=== PATIENT | female | born 1950 | race Caucasian/White ===

== ENCOUNTER 2019-06-25 13:54 | Emergency (ER) | payer OTHER, MEDICARE ==
[2019-06-25] MEDS ORDERED: ONDANSETRON 4 MG/2 ML VIAL ONE (15:22)
[2019-06-25] MEDS ORDERED: MORPHINE 2 MG/ML SYR ONE (15:22)
[2019-06-25] MEDS ORDERED: NA CHLORIDE 0.9% 500 ML ONE (15:22)
[2019-06-25 15:34] LABS: Absolute Lymphocytes (CBC) 1.7 K/uL (0.7-4.9); Basophils % 0.6 % (0-1.3); Lymphocytes % 20.7 % (15.3-44.8); MPV 7.1 fL (7.6-11.3); RBC Red Blood Cell Count 4.47 M/uL (3.86-4.86)
[2019-06-25 15:48] LABS: ALT/SGPT 19 U/L (12-78); AST/SGOT 15 U/L (15-37); Albumin 3.9 g/dL (3.4-5.0); Alkaline Phosphatase 92 U/L (45-117); BUN Blood Urea Nitrogen 13 mg/dL (7-18); Bicarbonate 25 mmol/L (21-32); Bilirubin Direct 0.2 mg/dL (0-0.2); Bilirubin Total 0.6 mg/dL (0.2-1.0); Glucose Level 78 mg/dL (74-106); Lipase 55 U/L (73-393); Magnesium 1.9 mg/dL (1.8-2.4); Potassium 3.7 mmol/L (3.5-5.1); Sodium Level 140 mmol/L (136-145); Troponin I < 0.02 ng/mL (0.0-0.045)
--- NOTE | 2019-06-25 16:18 | RAD REPORT ---
EXAM DESCRIPTION: CT - Head Brain Wo Cont - 06/25/2019 4:09 pm CLINICAL HISTORY: Dizziness COMPARISON: None TECHNIQUE: Computed axial tomography of the head was obtained. IV contrast was not requested. All CT scans are performed using dose optimization technique as appropriate and may include automated exposure control or mA/KV adjustment according to patient size. FINDINGS: An intracranial bleed is not seen . The ventricles are normal in caliber. No extra-axial fluid collection is noted. Mild to moderate low-density areas within periventricular, deep and subcortical white matter likely r epresent ischemic changes secondary to small vessel disease. Fluid within the sinuses/ mastoids is not seen. IMPRESSION: No acute intracranial abnormality is seen. If patient's symptoms persist MRI of the bra in would be recommended.
--- NOTE | 2019-06-25 16:28 | RAD REPORT ---
EXAM DESCRIPTION: CT - Abdomen Pelvis W Contrast - 06/25/2019 4:13 pm CLINICAL HISTORY: Abdominal pain COMPARISON: none. TECHNIQUE: Computed axial tomography of the abdomen pelvis was obtained. 100 cc Isovue-300 was admin istered intravenously. Oral contrast was not requested which limits evaluation of bowel and appendix. All CT scans are performed using dose optimization technique as appropriate and may include automated exposure control or mA/KV adjustment according to patient size. FINDINGS: Very small hepatic cyst 1Spleen, pancreas, adrenal and kidneys appear unremarkable. There is no evidence of diverticulitis. The appendix is not visualized Fluid is present within nondilated bowel IMPRESSION: Fluid is present within nondilated bowel which may indicate an enteritis .
[2019-06-25 16:33] LABS: Calcium Oxalate Crystals- Ur MANY (NONE SEEN); Urine Amorphous Sediment 3+ /HPF (NONE SEEN); Urine Bacteria <20 /HPF (<20); Urine Culture Reflex Order NOT NEEDED; Urine Mucus 2+ /HPF (NONE SEEN); Urine RBC <5 /HPF (NONE SEEN)
[2019-06-25 17:03] LABS: Urine Blood NEGATIVE (NEG); Urine Glucose NEGATIVE (NEG); Urine Protein TRACE (NEG); Urine Specific Gravity >1.030 (1.005-1.030); Urine pH 5.5 (5.0-7.0)
[2019-06-25] MEDS ORDERED: DICYCLOMINE HCL 10 MG CAP ONE (17:19)
--- NOTE | 2019-06-25 17:24 | ER ---
Nurse's Notes [facility] Name: Alejandra Zapata Age: 69 yrs Sex: Female : 1950 Arrival Date: 06/25/2019 Time: 13:57 Bed 5 Private MD: Diagnosis: Lower abdominal pain, unspecified;Diarrhea, unspecified Presentation: 06/25 14:00 Presenting complaint: Patient states: i have been sick for like 2 and half months, i tw2 had e coli, i go to dr. dolan, then right at the end of it i thought i had a UTI, i had meniscus surgery first, then got the infection, i was diagnosed with diverticulitis. Transition of care: patient was not received from another setting of care. Risk Assessment: Do you want to hurt yourself or someone else? Patient reports no desire to harm self or others. Initial Sepsis Screen: Does the patient meet any 2 criteria? No. Patient's initial sepsis screen is negative. Does the patient have a suspected source of infection? No. Patient's initial sepsis screen is negative. Care prior to arrival: None. 14:00 Method Of Arrival: Ambulatory tw2 14:00 Acuity: AYSE 3 tw2 14:01 Presenting complaint: Patient states: my stomach hurts and my right side of my stomach tw2 hurts and it get dizzy, i have nausea, and i have diarrhea. Triage Assessment: 14:03 General: Appears in no apparent distress. well groomed, Behavior is calm, cooperative, tw2 appropriate for age. Pain: Complains of pain in abdomen. GI: Reports lower abdominal pain, upper abdominal pain, diarrhea, nausea. 14:03 Neuro: Reports dizziness. tw2 Historical: - Allergies: 14:09 Bactrim; tw2 14:09 PENICILLINS; tw2 14:09 Latex, Natural Rubber; tw2 14:09 Lyrica; tw2 - Home Meds: 14:09 simvastatin 20 mg Oral tab 1 tab once daily [Active]; clonazepam 1 mg Oral TbDL 1 tab 3 tw2 times per day [Active]; duloxetine 60 mg oral cpDR 1 cap once daily [Active]; bupropion HCl 300 mg Oral Tb24 1 tab once daily [Active]; diclofenac sodium 75 mg oral TbEC 1 tab 2 times per day [Active]; acetaminophen-codeine 300-30 mg Oral tab 1 tab every 4 hours [Active]; Probiotic 20 billion cell oral cap [Active]; Flagyl 500 mg Oral tab 1 tab 2 times per day [Active]; levofloxacin 500 mg Oral tab 1 tab once daily [Active]; Cholestyramine Light oral oral [Active]; Zofran (as hydrochloride) 4 mg Oral tab 2 tabs [Active]; - PMHx: 14:09 Hyperlipidemia; Fibromyalgia; osteoarthritis; tw2 17:20 IBS; aa5 - PSHx: 14:09 knee, left; Tonsillectomy; cataracts, both eyes; D\\T\\C; ablation; tw2 - Immunization history:: Adult Immunizations. - Social history:: Smoking status: . - Ebola Screening: : Patient denies travel to an Ebola-affected area in the 21 days before illness onset. Screenin:40 Abuse screen: Denies threats or abuse. Nutritional screening: No deficits noted. aa5 Tuberculosis screening: No symptoms or risk factors identified. Fall Risk None identified. Assessment: 14:40 General: Appears comfortable, Behavior is calm, cooperative. Pain: Complains of pain in aa5 right lower quadrant Pain radiates to posterior aspect of right lateral abdomen and anterior aspect of right lateral abdomen Pain currently is 5 out of 10 on a pain scale. Quality of pain is described as sharp, Pain began 2 months ago Is continuous. Neuro: Level of Consciousness is awake, alert, obeys commands, Oriented to person, place, time, situation, Senior Vice President & General Counsel are equal bilaterally Moves all extremities. Speech is normal, Facial symmetry appears normal, Pupils are PERRLA, Reports dizziness. Cardiovascular: Heart tones S1 S2 present Rhythm is regular. Respiratory: Airway is patent Respiratory effort is even, unlabored, Respiratory pattern is regular, symmetrical. GI: Abdomen is round non-distended, Bowel sounds present X 4 quads. Abd is soft X 4 quads Abdomen is tender to palpation in right lower quadrant Reports diarrhea, nausea, Patient currently denies vomiting. : No signs and/or symptoms were reported regarding the genitourinary system. Denies burning with urination. EENT: No signs and/or symptoms were reported regarding the EENT system. Derm: Skin is pink, warm \\T\\ dry. Musculoskeletal: Range of motion: intact in all extremities. 14:40 Reassessment: Pt states "I was prescribed Cipro and Flagyl on 06/11/19 at the [facility] ER aa5 and last Sunday I called Dr. Khan's office because I wasn't feeling better and they called me in some Levaquin and Flagyl so I still have a few days left of those prescriptions" . 16:10 Reassessment: Pt in CT . aa5 16:35 Reassessment: Patient is alert, oriented x 3, equal unlabored respirations, skin aa5 warm/dry/pink. Patient states feeling better. Pt denies nausea, reports pain is 3/10 on a pain scale. . 17:20 Reassessment: Patient is alert, oriented x 3, equal unlabored respirations, skin aa5 warm/dry/pink. Pt given cup of water for PO challenge. . 18:20 Reassessment: Patient is alert, oriented x 3, equal unlabored respirations, skin aa5 warm/dry/pink. Pt tolerated cup of water well, no nausea or vomiting noted. . Vital Signs: 14:02 BP 115 / 92; Pulse 94; Resp 17; Temp 97.7(TE); Pulse Ox 100% on R/A; Weight 65.77 kg tw2 (R); Height 5 ft. 5 in. (165.10 cm) (R); Pain 5/10; 15:35 BP 129 / 71 Supine; Pulse 84; jb1 15:35 BP 114 / 77 Sitting; Pulse 89; jb1 15:35 BP 104 / 84 Standing; Pulse 98; jb1 16:35 BP 121 / 84; Pulse 79; Resp 18 S; Pulse Ox 98% on R/A; Pain 3/10; aa5 17:00 BP 133 / 82; Pulse 76; Resp 16; Pulse Ox 97% ; sv 14:02 Body Mass Index 24.13 (65.77 kg, 165.10 cm) tw2 ED Course: 13:57 Patient arrived in ED. as 14:01 Triage completed. tw2 14:02 Arm band placed on. tw2 14:11 Ira Norton, PETRA is Primary Nurse. aa5 14:38 Mane Adamson PA is PHCP. cp 14:38 Robert Vicente MD is Attending Physician. cp 14:40 Patient has correct armband on for positive identification. Placed in gown. Bed in low aa5 position. Call light in reach. Side rails up X2. 15:10 Initial lab(s) drawn, by me, sent to lab. Inserted saline lock: 20 gauge in right aa5 antecubital area, using aseptic technique. Blood collected. 15:12 EKG done, by project technician. reviewed by Mane SAEED. at1 15:49 Urine collected: clean catch specimen, cloudy, samira colored. jb1 16:18 CT Head Brain wo Cont In Process Unspecified. EDMS 16:27 CT Abd/Pelvis - IV Contrast Only In Process Unspecified. EDMS 17:22 Onel Khan MD is Referral Physician. cp 18:25 No provider procedures requiring assistance completed. IV discontinued, intact, aa5 bleeding controlled, No redness/swelling at site. Pressure dressing applied. Administered Medications: 15:39 Drug: Zofran 4 mg Route: IVP; Site: right antecubital; sv 15:50 Follow up: Response: No adverse reaction aa5 15:40 Drug: NS 0.9% 500 ml Route: IV; Rate: bolus; Site: right antecubital; sv 16:35 Follow up: IV Status: Completed infusion; IV Intake: 500ml aa5 15:41 Drug: morphine 2 mg Route: IVP; Site: right antecubital; sv 15:50 Follow up: Response: No adverse reaction aa5 17:20 Drug: Bentyl 20 mg Route: PO; aa5 18:20 Follow up: Response: No adverse reaction aa5 Intake: 16:35 IV: 500ml; Total: 500ml. aa5 Outcome: 17:23 Discharge ordered by MD. cp 18:25 Discharged to home ambulatory, with significant other. aa5 18:25 Condition: improved 18:25 Discharge instructions given to patient, Instructed on discharge instructions, follow up and referral plans. medication usage, Demonstrated understanding of instructions, follow-up care, medications, Prescriptions given X 3. 18:26 Patient left the ED. iw Signatures: Dispatcher [employer] EDMS Vic Gardner jb1 Kamla Rosario, PETRA RN Kiara Becerra Irene, RN RN iw Ira Norton RN RN aa5 Marcela Casiano, postal service clerk EKG Tat1 Mane Adamson PA PA cp Sofi Skinner RN RN tw2 Corrections: (The following items were deleted from the chart) 16:55 14:40 Neuro: Level of Consciousness is awake, alert, obeys commands, Oriented to aa5 person, place, time, situation, aa5 16:57 16:25 BP 121 / 84; Pulse 79bpm; Resp 18bpm; Spontaneous; Pulse Ox 98% RA; Pain 3/10; aa5aa5 20:02 17:20 Reassessment: Patient is alert, oriented x 3, equal unlabored respirations, skin aa5 warm/dry/pink. Pt tolerated cup of water well, no nausea or vomiting noted. . aa5
--- NOTE | 2019-06-25 17:25 | EDPHYS ---
Physician Documentation [facility] Name: Alejandra Zapata Age: 69 yrs Sex: Female : 1950 Arrival Date: 06/25/2019 Time: 13:57 Bed 5 Private MD: ED Physician Robert Vicente HPI: 06/25 15:00 This 69 yrs old Female presents to ER via Ambulatory with complaints of cp Weakness, Abdominal Pain, Dizziness. 15:00 The patient presents with abdominal pain right lower quadrant. Onset: The cp symptoms/episode began/occurred suddenly, this morning, awoke patient from sleep. 15:00 The symptoms do not radiate. Associated signs and symptoms: Pertinent positives: cp nausea, diarrhea for over 2 months, Pertinent negatives: blood in stools, chest pain, constipation, dysuria, fever, hematuria, vomiting. Severity of pain: in the emergency department the pain has improved. Patient reports for past 2 months she has been treated with multiple antibiotics for UTI and diverticulitis. Patient reports she is currently taking Levaquin and Flagyl after no improvement with Cipro and Flagyl for Diverticulitis. Patient reports pain of diverticulitis was improving until this morning when pain awoke her. Pain has improved since this morning. Patient reports diarrhea for over two months with 2 episodes today. Historical: - Allergies: 14:09 Bactrim; tw2 14:09 PENICILLINS; tw2 14:09 Latex, Natural Rubber; tw2 14:09 Lyrica; tw2 - Home Meds: 14:09 simvastatin 20 mg Oral tab 1 tab once daily [Active]; clonazepam 1 mg Oral TbDL 1 tab 3 tw2 times per day [Active]; duloxetine 60 mg oral cpDR 1 cap once daily [Active]; bupropion HCl 300 mg Oral Tb24 1 tab once daily [Active]; diclofenac sodium 75 mg oral TbEC 1 tab 2 times per day [Active]; acetaminophen-codeine 300-30 mg Oral tab 1 tab every 4 hours [Active]; Probiotic 20 billion cell oral cap [Active]; Flagyl 500 mg Oral tab 1 tab 2 times per day [Active]; levofloxacin 500 mg Oral tab 1 tab once daily [Active]; Cholestyramine Light oral oral [Active]; Zofran (as hydrochloride) 4 mg Oral tab 2 tabs [Active]; - PMHx: 14:09 Hyperlipidemia; Fibromyalgia; osteoarthritis; tw2 17:20 IBS; aa5 - PSHx: 14:09 knee, left; Tonsillectomy; cataracts, both eyes; D\T\C; ablation; tw2 - Immunization history:: Adult Immunizations. - Social history:: Smoking status: . - Ebola Screening: : Patient denies travel to an Ebola-affected area in the 21 days before illness onset. ROS: 15:05 Constitutional: Negative for body aches, chills, fever, poor PO intake. cp 15:05 Eyes: Negative for injury, pain, redness, and discharge. cp 15:05 Cardiovascular: Negative for chest pain, edema, palpitations. cp 15:05 Respiratory: Negative for cough, shortness of breath, wheezing. cp 15:05 Abdomen/GI: Positive for abdominal pain, nausea, diarrhea, Negative for vomiting, constipation, anorexia, black/tarry stool, rectal bleeding. 15:05 Back: Negative for pain at rest, pain with movement. 15:05 : Negative for urinary symptoms, flank pain. 15:05 Neuro: Positive for dizziness, weakness, Negative for altered mental status, headache, numbness, speech changes, syncope, visual changes. 15:05 All other systems are negative. Exam: 15:12 Constitutional: The patient appears in no acute distress, alert, awake, cp non-diaphoretic, non-toxic, well developed, well nourished. 15:12 Head/Face: Normocephalic, atraumatic. cp 15:12 Eyes: Periorbital structures: appear normal, Conjunctiva: normal, no exudate, no injection, Sclera: no appreciated abnormality, Lids and lashes: appear normal, bilaterally. 15:12 ENT: External ear(s): are unremarkable, Nose: is normal, Mouth: Lips: moist, Oral mucosa: pink and intact, moist, Posterior pharynx: is normal, airway is patent, no erythema, no exudate. 15:12 Chest/axilla: Inspection: normal, Palpation: is normal, no crepitus, no tenderness. 15:12 Cardiovascular: Rate: normal, Rhythm: regular, Edema: is not appreciated, JVD: is not appreciated. 15:12 Respiratory: the patient does not display signs of respiratory distress, Respirations: normal, no use of accessory muscles, no retractions, no splinting, no tachypnea, labored breathing, is not present, Breath sounds: are clear throughout, no decreased breath sounds, no stridor, no wheezing. 15:12 Abdomen/GI: Inspection: abdomen appears normal, Bowel sounds: active, all quadrants, Palpation: soft, in all quadrants, mild abdominal tenderness, in the right lower quadrant, rebound tenderness, is not appreciated, voluntary guarding, is not appreciated, involuntary guarding, is not appreciated. 15:12 Back: pain, is absent, ROM is normal. 15:12 Skin: no rash present. 15:12 Neuro: Orientation: to person, place \T\ time. Mentation: is normal, Cerebellar function: is grossly normal, Motor: moves all fours, strength is normal, Sensation: is normal. 15:15 ECG was reviewed by the Attending Physician. cp Vital Signs: 14:02 BP 115 / 92; Pulse 94; Resp 17; Temp 97.7(TE); Pulse Ox 100% on R/A; Weight 65.77 kg tw2 (R); Height 5 ft. 5 in. (165.10 cm) (R); Pain 5/10; 15:35 BP 129 / 71 Supine; Pulse 84; jb1 15:35 BP 114 / 77 Sitting; Pulse 89; jb1 15:35 BP 104 / 84 Standing; Pulse 98; jb1 16:35 BP 121 / 84; Pulse 79; Resp 18 S; Pulse Ox 98% on R/A; Pain 3/10; aa5 17:00 BP 133 / 82; Pulse 76; Resp 16; Pulse Ox 97% ; sv 14:02 Body Mass Index 24.13 (65.77 kg, 165.10 cm) tw2 MDM: 14:55 Patient medically screened. cp 15:30 Differential diagnosis: appendicitis, bowel obstruction, diverticulitis, gastritis, cp non-specific abd pain, Pyelonephritis, Ureterolithiasis, urinary tract infection. 17:22 Data reviewed: vital signs, nurses notes, lab test result(s), radiologic studies, CT cp scan. 17:22 Counseling: I had a detailed discussion with the patient and/or guardian regarding: the cp historical points, exam findings, and any diagnostic results supporting the discharge/admit diagnosis, lab results, radiology results, the need for outpatient follow up, a employee relations assistant, to return to the emergency department if symptoms worsen or persist or if there are any questions or concerns that arise at home. Response to treatment: the patient's symptoms have markedly improved after treatment, and as a result, I will discharge patient. Special discussion: Based on the patient's Hx, exam, and Dx evaluation, there is no indication for emergent surgery or inpatient Tx. It is understood by the patient/guardian that if the Sx's persist or worsen they need to return immediately for re-evaluation. 06/25 15:01 Order name: Basic Metabolic Panel; Complete Time: 15:56 cp 06/25 15:01 Order name: CBC with Diff; Complete Time: 15:56 cp 06/25 15:01 Order name: Creatinine for Radiology; Complete Time: 15:56 cp 06/25 15:01 Order name: Hepatic Function; Complete Time: 15:56 cp 06/25 15:01 Order name: Lipase; Complete Time: 15:56 06/25 15:01 Order name: Troponin I; Complete Time: 15:56 cp 06/25 15:01 Order name: Lactate; Complete Time: 16:49 cp 06/25 15:01 Order name: Magnesium; Complete Time: 15:56 cp 06/25 15:01 Order name: Urine Microscopic Only; Complete Time: 16:49 cp 06/25 16:49 Interpretation: Normal except: AMORPH 3+; CAOX MANY. cp 06/25 15:44 Order name: Urine Dipstick--Ancillary (enter results) bd 06/25 15:01 Order name: IV Saline Lock; Complete Time: 15:04 06/25 15:01 Order name: Labs collected and sent; Complete Time: 15:04 cp 06/25 15:01 Order name: EKG; Complete Time: 15:03 cp 06/25 15:01 Order name: EKG - Nurse/Tech; Complete Time: 15:37 cp 06/25 15:01 Order name: Orthostatics; Complete Time: 15:37 cp 06/25 15:01 Order name: Urine Dipstick-Ancillary (obtain specimen); Complete Time: 15:37 cp 06/25 15:57 Order name: CT Abd/Pelvis - IV Contrast Only; Complete Time: 16:49 cp 06/25 15:57 Order name: CT Head Brain wo Cont; Complete Time: 16:49 cp 06/25 16:52 Order name: PO challenge; Complete Time: 17:34 cp EC:15 Rate is 80 beats/min. Rhythm is regular. RI interval is normal. QRS interval is normal. cp QT interval is normal. Interpreted by me. Reviewed by me. Administered Medications: 15:39 Drug: Zofran 4 mg Route: IVP; Site: right antecubital; sv 15:50 Follow up: Response: No adverse reaction aa5 15:40 Drug: NS 0.9% 500 ml Route: IV; Rate: bolus; Site: right antecubital; sv 16:35 Follow up: IV Status: Completed infusion; IV Intake: 500ml aa5 15:41 Drug: morphine 2 mg Route: IVP; Site: right antecubital; sv 15:50 Follow up: Response: No adverse reaction aa5 17:20 Drug: Bentyl 20 mg Route: PO; aa5 18:20 Follow up: Response: No adverse reaction aa5 Disposition: 06/26 08:57 Co-signature as Attending Physician, Robert Vicente MD I agree with the assessment and kdr plan of care. Disposition: 06/25/19 17:23 Discharged to Home. Impression: Lower abdominal pain, unspecified, Diarrhea, unspecified. - Condition is Stable. - Discharge Instructions: Abdominal Pain, Adult, Food Choices to Help Relieve Diarrhea, Adult, Diarrhea, Adult, Dizziness. - Prescriptions for Bentyl 20 mg Oral Tablet - take 1 tablet by ORAL route every 6 hours As needed; 20 tablet. Meclizine 25 mg Oral Tablet - take 1 tablet by ORAL route every 8 hours As needed; 30 tablet. Zofran 4 mg Oral Tablet - take 1 tablet by ORAL route every 12 hours As needed; 20 tablet. - Medication Reconciliation Form, Thank You Letter, Antibiotic Education, Prescription Opioid Use form. - Follow up: Onel Khan MD; When: 1 - 2 days; Reason: Recheck today's complaints. - Problem is new. - Symptoms have improved. Signatures: Dispatcher [employer] Kamla Rollins RN RN sv Rittger, Kevin, MD MD kdr Williams, Irene, RN RN iw Ira Norton RN RN aa5 Mane Adamson PA PA cp Wise, Tara RN RN tw2 Corrections: (The following items were deleted from the chart) 06/25 18:26 17:23 06/25/2019 17:23 Discharged to Home. Impression: Lower abdominal pain, iw unspecified; Diarrhea, unspecified. Condition is Stable. Forms are Medication Reconciliation Form, Thank You Letter, Antibiotic Education, Prescription Opioid Use. Follow up: Onel Khan; When: 1 - 2 days; Reason: Recheck today's complaints. Problem is new. Symptoms have improved. cp
[2019-06-25 19:47] VITALS: TEMP 97.7
[2019-06-25 19:51] VITALS: BP 133/82; O2SAT 97
--- NOTE | 2019-06-26 07:04 | EKG ---
Test Date: 2019-06-25 Test Time: 15:06:49 School Operations Manager: ROSIBEL MEASUREMENT RESULTS: Intervals: Rate: 80 CA: 176 QRSD: 80 QT: 390 QTc: 449 [place]: P: 27 CA: 176 QRS: 50 T: 34 INTERPRETIVE STATEMENTS: Normal sinus rhythm Normal ECG No previous ECG available for comparison Electronically Signed On 06-26-19 07:03:53 CDT by Nicolas Henson
== END 2019-06-25 18:26 | disposition home or self-care (01) ==
LOC: ER 13:54
DX: R19.7 Diarrhea, unspecified (principal); E78.5 Hyperlipidemia, unspecified; Z88.0 Allergy status to penicillin; Z88.1 Allergy status to other antibiotic agents; Z88.8 Allergy status to other drugs, medicaments and biological substances; Z91.040 Latex allergy status; Z91.048 Other nonmedicinal substance allergy status
CPT/HCPCS: 93005; 85025; 80048; 36415; 83735; 80076; 83605; 84484; 83690; 70450; 74177; Q9967; J2270; J2405; 81003; 81015